=== PATIENT | female | born 1995 | race Asian ===

== ENCOUNTER 2017-02-02 21:13 | Emergency (ER) | payer OTHER ==
--- NOTE | 2017-02-02 21:26 | EDPHY ---
H & P Stated Complaint: left elbow injury Source: Patient Exam Limitations: No limitations - Personal History LMP (Females 10-55): 22-28 Days Ago Current Tetanus Diphtheria and Acellular Pertussis (TDAP): Yes - Medical/Surgical History Hx Asthma: No Hx Chronic Respiratory Disease: No Hx Diabetes: No Hx Cardiac Disease: No Hx Renal Disease: No Hx Cirrhosis: No Hx Alcoholism: No Hx HIV/AIDS: No Hx Splenectomy or Spleen Trauma: No Other PMH: denies - Social History Smoking Status: Never smoked Time Seen by Provider: 02/02/17 21:25 HPI/ROS: HPI: This is a 21-year-old female presents with Chief Complaint: Left elbow injury Location: Left elbow Quality: Injury Duration: 30 min to 1 hr prior to arrival Signs and Symptoms: No bleeding, no radiation, no numbness, no weakness, no tingling, no incontinence, + decreased range of motion, + swelling, + pain Timing: Sudden Severity: 10 out 10 Context: Patient is right-hand dominant, was indoor rock climbing, when she slipped and fell approximately 10 ft landed directly on her front. She felt immediate pain in her left upper forearm/left elbow area with decreased range of motion. She denies any numbness, skin color changes. She does not take any [id number] medications or applied any ice. denies LOC/head injury/neck pain Modifying Factors: None Comment: ROS: see HPI Constitutional: No fever, no chills, no weight loss Eyes: No blurred vision Respiratory: No shortness of breath, no cough Cardiovascular: No chest pain Gastrointestinal: No nausea, no vomiting no diarrhea Genitourinary: No dysuria Extremities: No myalgias Neurologic: No weakness, no numbness Skin: No rashes Hematologic: No bruising, no bleeding MEDICAL/SURGICAL/SOCIAL HISTORY: Medical history: Generally healthy. Does not take any regular medications. Surgical history: Denies Social history: Student. CONSTITUTIONAL: Young adult female, awake and alert, no obvious distress HEENT: Atraumatic and normocephalic, PERRL, EOMI. Tympanic membranes clear. Oropharynx clear, no exudate and moist pink mucosa. Airway patent. No lymphadenopathy. No meningismus. Cardiovascular: Normal S1/S2, regular rate, regular rhythm, without murmur rub or gallop. PULMONARY/CHEST: Symmetrical and nontender. Clear to auscultation bilaterally. Good air movement. No accessory muscle usage. ABDOMEN: Soft, nondistended, nontender, no rebound, no guarding, no peritoneal signs, no masses or organomegaly. No CVAT. EXTREMITIES: 2/2 radial pulses, digital field service technician strength 5/5, ELBOW: Refuses to extend, fix flexion at 90, no tenderness over medial epicondyle, no tenderness over lateral epicondyle, no effusion. no deformities, no clubbing, no cyanosis or edema. NEUROLOGICAL: no focal neuro deficits. GCS 15. SKIN: Warm and dry, no erythema. no rash. Good capillary refill. (Kelsi Abbott) Constitutional: Initial Vital Signs Temperature (C) 37.1 C 02/02/17 21:17 Heart Rate 62 02/02/17 21:17 Respiratory Rate 20 02/02/17 21:17 Blood Pressure 108/81 H 02/02/17 21:17 O2 Sat (%) 96 02/02/17 21:17 O2 Delivery Mode Room Air Allergies/Adverse Reactions: No Known Allergies Allergy (Unverified 02/02/17 21:17) Home Medications: Medication Instructions Recorded NK [No Known Home Meds] 02/02/17 Medical Decision Making - Diagnostics Imaging Results: Imaging Impressions Forearm X-Ray 02/02/17 21:35 Impression: Dislocated elbow. Elbow X-Ray 02/02/17 22:12 Impression: Status post closed reduction with interval anatomic realignment of the elbow. Procedures: Procedure: Dislocation reduction. Left Elbow intra-articular block performed using 10 mL of bupivacaine. The dislocation of the left elbow was reduced using longitudinal traction on forearm without complications. Post reduction the patient's neurovascular exam is normal. Post reduction x-ray demonstrates reduction of the joint to the anatomic position. The procedure was performed by myself. Procedure: Splint placement. A long-arm posterior splint and sling were applied by the Emergency Room library cataloging technician. After application of the splint I returned and re-examined the patient. The splint was adequately immobilizing the joint and distal to the splint the patient's circulation and sensation was intact. (Kelsi Abbott) ED Course/Re-evaluation: This patient was seen and examined by me. She presents with a left elbow dislocation. On exam she has an obvious deformity of the left elbow, radial pulse 2 +, able to move all digits. I agree with assessment and plan. (Karissa Jacob) Left elbow x-ray, left forearm x-ray, ice pack, oral medications ordered Ice pack applied, p.o. [place] given, placed in sling for comfort Bedside portable X-ray reviewed images that show closed dislocation with no fracture No signs of neurovascular compromise/tenting of skin/compartment syndrome/ extremities and joints examined above and below area of concern and are neurovascularly intact. Patient given left elbow intra-articular injection for anesthesia and reduced on 1st attempt using countertraction technique with immediate relief of pain. Post reduction film reviewed via bedside and showed normal anatomic alignment and no fracture. Able to wiggle all 5 fingers with good capillary refill. Placed in long-arm posterior splint with elbow slightly less than 90 flexion and sling. Ortho follow-up within 1 week. This patient was seen under the supervision of my secondary supervising physician. I evaluated care for this patient independently. Discussed this patient with Dr. Jacob who did not see the patient. (Kelsi Abbott) Differential Diagnosis: Differential diagnosis includes but is not limited to olecranon fracture, elbow sprain, elbow dislocation, radial fracture, ulnar fracture, distal humerus fracture, nerve injury, tendon injury. (Kelsi Abbott) - Data Points Medications Given: Discontinued Medications Hydrocodone Bitart/Acetaminophen ([place] 5/325) 1 tab PO EDNOW ONE Stop: 02/02/17 21:35 Last Admin: 02/02/17 21:36 Dose: 1 tab Oxycodone/Acetaminophen (Percocet 5/325mg Prepack#4) 1 btl TAKEHOME EDNOW ONE Stop: 02/02/17 23:13 Last Admin: 02/02/17 23:16 Dose: 1 btl Departure - Departure Disposition: Home, Routine, Self-Care Clinical Impression: Dislocation of left elbow Qualifiers: Encounter type: initial encounter Qualified Code(s): S53.105A - Unspecified dislocation of left ulnohumeral joint, initial encounter Condition: Good Instructions: Oxycodone/Acetaminophen (By mouth), Elbow Dislocation (ED) Additional Instructions: Keep the splint and sling dry and in place until seen by Orthopedics. Wear the sling while out of bed for comfort. Take Tylenol 650 mg every 4 hours and/or Ibuprofen 600 mg every 8 hours with food as needed for pain. Apply ice for 30 minutes at a time; 2-3 times per day for the next 1-2 days. Follow up with Orthopedics in 5-7 days at which time they will evaluate and recommend with you if conservative management versus surgery is indicated. The x-rays obtained in the emergency department today demonstrate no evidence of an obvious fracture. Sometimes fractures are not obvious on the initial set of x-rays performed in the ED. For this reason, you should have repeat x-rays performed in 7-10 days if you are having any pain exclude the possibility of an occult fracture. Referrals: Barrett Pacheco MD [Medical Doctor] - As per Instructions
[2017-02-02] MEDS ORDERED: HYDROCODONE/APAP 5/325 TAB PO ONE (21:34)
[2017-02-02] MEDS ORDERED: HYDROCODONE/APAP 5/325 TAB ONE (21:35)
[2017-02-02] MEDS ORDERED: OXYCODONE/APAP 5/325MG PREPACK#4 BTL TAKEHOME ONE (23:12)
[2017-02-02 23:22] VITALS: BP 110/62; PULSE 69; RESP 16; TEMP 98.6; O2SAT 97
== END 2017-02-02 23:21 | disposition home or self-care (01) ==
PROC: 0RSMXZZ Reposition Left Elbow Joint, External Approach (ICD-10-PCS; principal; 2017-02-02)
DX: S53.105A Unspecified dislocation of left ulnohumeral joint, initial encounter (principal); W17.89XA Other fall from one level to another, initial encounter; Y99.8 Other external cause status; Y93.89 Activity, other specified
CPT/HCPCS: A4565